=== PATIENT | female | born 1960 | race Caucasian/White ===

== ENCOUNTER 2019-07-02 09:09 | Emergency (ER) | payer OTHER ==
[~2019-07-02] VITALS: Ht 152.4 cm; Wt 58.1 kg
[2019-07-02 09:10] VITALS: BP 164/88
--- NOTE | 2019-07-02 09:49 | REP ---
Clinical: Trauma. Fall. Technique: AP, lateral, bilateral oblique views of the left wrist. Findings: Comminuted Colles' fracture of the distal radius with overlying soft tissue swelling noted. Osteopenia and degenerative changes limit evaluation for further subtle injury. No definite acute carpal bone fracture or dislocation appreciated. Impression: 1. Colles' fracture of the distal radius with overlying soft tissue swelling. 2. Osteopenia and degenerative changes somewhat limit evaluation for subtle injury involving the carpal bones although no obvious fracture / dislocation identified. Electronically Signed by Augustin Ott MD 07/02/2019 09:41 A
[2019-07-02] MEDS ORDERED: NORC1TAB7 PO (10:06)
== END 2019-07-02 10:12 | disposition home or self-care (01) ==
LOC: M ED 09:09
DX: S52.532A Colles' fracture of left radius, initial encounter for closed fracture (principal); W00.0XXA Fall on same level due to ice and snow, initial encounter; Y92.019 Unspecified place in single-family (private) house as the place of occurrence of the external cause; M85.842 Other specified disorders of bone density and structure, left hand; M19.032 Primary osteoarthritis, left wrist